=== PATIENT | male | born 1980 | race Caucasian/White ===

== ENCOUNTER 2018-08-02 13:16 | Outpatient (CLI) | payer SELFPAY ==
[2018-08-02 14:05] LABS: D-Dimer 323 ng/mlFEU (<500)
== END 2018-08-02 13:36 ==
PROVIDERS: PCP Specialist/Technologist Athletic Trainer; Visit Provider Specialist/Technologist Athletic Trainer
DX: R23.0 Cyanosis (principal)
CPT/HCPCS: 36415; 85379

== ENCOUNTER 2018-08-23 00:33 | Outpatient (CLI) | payer SELFPAY ==
--- NOTE | 2018-08-23 08:09 | DI.US_ITS ---
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 CLOT OR DVT LEFT UPPER EXTREMITY ULTRASOUND: The jugular, subclavian, axillary, basilic, brachial and cephalic veins all show compression, augmentation and color flow. No evidence of a deep venous thrombus is seen. No dilated veins are seen in the forearm. The veins in the ulnar and radial side of the forearm show normal compression and color flow. There is a 0.7 by 0.7 by 0.6, round, echogenic, avascular focus in the soft tissues superior to the elbow, likely reflecting a benign lesion such as a lipoma. IMPRESSION: No evidence of a left upper extremity deep venous thrombus.
== END 2018-08-23 00:53 ==
PROVIDERS: PCP Specialist/Technologist Athletic Trainer; Visit Provider Specialist/Technologist Athletic Trainer
DX: R23.0 Cyanosis (principal); R53.83 Other fatigue
CPT/HCPCS: 93971

== ENCOUNTER 2019-03-06 11:33 | Emergency (ER) | payer MEDICAID, SELFPAY ==
[2019-03-06] VITALS (42 sets, daily range): BP systolic 116–142; BP diastolic 64–95; PULSE 45–127; RESP 13–26; TEMP 37.1; O2SAT 95–100
--- NOTE | 2019-03-06 11:59 | ED.GENADUL_ITS ---
Discharge Plan Disposition Patient Disposition: [facility] Discharge Details Chief Complaint: Palpitatns Clinical Impression: Heart palpitations, Bigeminy Primary Care Provider: Zain Robbins ED Provider: Shubham Lopez Home Meds and New Rx's Prescriptions: No Action Xarelto 20 mg Tablet 20 mg PO HS RF: 0 clopidogrel [Plavix] 75 mg Tablet 75 mg PO DAILY RF: 0 Discharge Data Discharge Date/Time-TO BE ENTERED AT DEPARTURE: 03/06/19 15:37 Medical Decision Making 12:00 --39-year-old male presents approximately 2 weeks status post PFO repair with palpitations. Patient symptomatic today with lightheadedness and nausea. Symptoms now resolved. Patient first arrived he was noted to have significant amount of ectopy heart rate in the 120s to 130s. ECG was reviewed and interpreted by me: Sinus tachycardia 116 bpm with frequent PVCs and ventricular bigeminy pattern. 15:05 -- Spoke with BETZY Chowdary at [facility] cardiology who recommends transfer and treating with kdur 40meq PO. Awaiting ED physician accepting. 15:15 -- Spoke with Dr. Alexander, [facility] emergency physician who will accept the patient in transfer. Lab Data Lab results reviewed: Yes I reviewed the patient's lab results. HPI General Mode of arrival: ambulatory . Date/Time Provider Initiated Documentation: 03/06/19 11:59 . Limitations to Documentation: no limitations . Information obtained by: patient and family . HPI Narrative: 39-year-old male with history of recent PFO closure and left arm artery repair February 12, 2019, here with chief complaint of palpitations. Patient notes he has been having intermittent palpitations for the past 2 weeks. He typically has a few episodes a day that occur spontaneously, worse with certain positions including lying down and also seem to happen when he is taking deep breaths. Today symptoms more constant and severe with associated lightheadedness and dizziness. No associated chest pain. No shortness of breath. Related Data Home Medications Medication Instructions Recorded Confirmed clopidogrel [Plavix] 75 mg PO DAILY 03/06/19 03/06/19 rivaroxaban [Xarelto] 20 mg PO HS 03/06/19 03/06/19 Allergies Allergy/AdvReac Type Severity Reaction Status Date / Time coconut Allergy Severe anaphylaxis Unverified 03/06/19 11:49 General Stated Complaint: Palpitatns DILMA: 2 Review of Systems Review of Systems ROS Unobtainable: All systems reviewed & are unremarkable except as noted in HPI and below Cardiovascular Cardiovascular: Reports as per HPI Respiratory Respiratory: Reports as per HPI [facility] Surgical History S/P patent foramen ovale closure (Acute) Social History Smoking/Tobacco Use Status: Current every day Drug use: Never Do you feel safe at home: Yes Do you feel safe in your relationship?: Yes Exam Const General: cooperative and no acute distress HENMT Head: normocephalic Mouth: moist mucous membranes Eyes Conjunctivae: normal conjunctivae Sclera: normal sclerae Neck Neck: trachea midline and supple Resp Auscultation: clear to auscultation bilaterally, no rales, no rhonchi and no wheezes Cardio Jugular venous pressure: no JVD Rate: regular rate and not tachycardic Rhythm: regular rhythm GI Palpation: soft, not firm, no guarding, no masses, not rigid and nontender Skin General skin exam: no rashes or lesions noted Neuro General: alert, awake, oriented x3 and tone normal Extrem General: no edema Psych Appearance: grossly normal Mental Status: mental status grossly normal Speech and Movement: speech and movement normal Course Vital Signs Vital signs: Vital Signs Temperature 37.1 C 03/06/19 11:42 Pulse 60 03/06/19 11:42 Respiratory Rate 18 03/06/19 11:42 Blood Pressure 142/91 H 03/06/19 11:42 Pulse Oximetry 100 03/06/19 11:42 Temperature 37.1 C 03/06/19 11:42 Temperature Source Skin 03/06/19 11:42 Pulse 60 03/06/19 11:42 Respiratory Rate 18 03/06/19 11:42 Respiratory Effort 03/06/19 11:52 Blood Pressure 142/91 H 03/06/19 11:42 Blood Pressure Position Supine 03/06/19 11:42 Pulse Oximetry 100 03/06/19 11:42 Oxygen Delivery Method Room Air 03/06/19 11:42 Oxygen Flow Rate 0 03/06/19 11:42 Pain Level 8 03/06/19 11:42
[2019-03-06 12:38] LABS: Abs Immature Grans 0.02 k/cumm (0.0-0.09); Absolute Basophil Count 0.03 k/cumm (0.0-0.2); Absolute Eosinophil Count 0.39 k/cumm (0.0-0.7); Absolute Lymphocyte Count 2.07 k/cumm (1.2-3.4); Absolute Monocyte Count 0.56 k/cumm (0.11-0.7); Absolute Neutrophil Count 5.47 k/cumm (1.2-6.7); Basophils % 0.4; Eosinophils % 4.6; HCT 44.5 % (40.0-50.0); HGB 15.6 g/dL (13.5-17.5); Immature Grans % 0.2; Lymphocytes % 24.2; Mean Corp. HGB Concentration 35.1 g/dL (32.0-36.0); Mean Corpuscular Hemoglobin 29.1 pg (27.0-33.0); Mean Corpuscular Volume 82.9 fL (80-95); Mean Platelet Volume 9.7 fL (8.0-11.0); Monocytes % 6.6; Platelet Count 338 x1000/uL (130-400); RBC 5.37 m/cumm (4.50-6.00); RBC Distribution Width 12.1 % (11.8-14.1); White Blood Cell Count 8.54 k/cumm (4.4-10.8)
[2019-03-06 12:58] LABS: ALT 33 U/L (16-63); AST 16 U/L (15-37); Albumin 4.4 g/dL (3.4-5.0); Alkaline Phosphatase 95 U/L (46-116); Anion Gap 11.5 mmol/L (3-11); BUN 12 mg/dL (7-18); Bilirubin, Total 0.4 mg/dL (0.2-1.0); CO2 26.5 mmol/L (21.0-32.0); CREATININE 1.51 mg/dL (0.70-1.30); Calcium 9.6 mg/dL (8.5-10.1); Chloride 102 mmol/L (98-107); Estimated GFR 51.98 (mL/min/1.73m2); Glucose 121 mg/dL (70-100); Potassium 3.5 mmol/L (3.5-5.1); Sodium 140 mmol/L (136-145); TSH (W/Ref FT4) 2.99 uIU/mL (0.36-3.74); Total Protein 8.2 g/dL (6.4-8.2)
[2019-03-06 12:59] LABS: Troponin I < 0.05 ng/mL (0.00-0.06)
[2019-03-06] MEDS: Potassium Chloride 20 MEQ TABCR 40 MEQ PO (15:31)
== END 2019-03-06 15:37 | disposition short-term general hospital (02) ==
PROVIDERS: Emergency Provider Student in an Organized Health Care Education/Training Program; PCP Specialist/Technologist Athletic Trainer
DX: R00.2 Palpitations (principal); I49.3 Ventricular premature depolarization; R42 Dizziness and giddiness; R11.0 Nausea
CPT/HCPCS: 36415; 80053; 93005; 99285; 83735; 84443; 84484; 85025; 93010

== ENCOUNTER 2021-07-30 16:49 | Outpatient (REF) | payer MEDICAID, SELFPAY ==
[2021-07-30 20:21] LABS: Anion Gap 8.9 mmol/L (3-11); BUN 17 mg/dL (7-18); CO2 26.1 mmol/L (21.0-32.0); CREATININE 1.1 mg/dL (0.70-1.30); Calcium 9.4 mg/dL (8.5-10.1); Calculated LDL 144 mg/dL (<100); Chloride 104 mmol/L (98-107); Cholesterol 253 mg/dL (<200); Glucose 98 mg/dL (74-106); HDL Cholesterol 45 mg/dL (40-60); Potassium 4.5 mmol/L (3.5-5.1); Sodium 139 mmol/L (136-145); Triglyceride 320 mg/dL (<150)
== END 2021-07-30 16:50 | disposition home or self-care (01) ==
LOC: NCHCN 16:49
PROVIDERS: PCP Specialist/Technologist Athletic Trainer; Visit Provider Nurse Practitioner Family
DX: R03.0 Elevated blood-pressure reading, without diagnosis of hypertension (principal); E78.79 Other disorders of bile acid and cholesterol metabolism
CPT/HCPCS: 80048; 80061

== ENCOUNTER 2022-09-28 18:04 | Emergency (ER) | payer MEDICAID, SELFPAY ==
[2022-09-28 18:07] VITALS: BP 135/87; PULSE 88; RESP 16; O2SAT 100
[2022-09-28] MEDS: Oxymetazolone 0.05% SPRAY 15 ML BTL NS (18:30)
[2022-09-28] MEDS: Silver Nitrate Stick 1 EACH TP (19:20)
--- NOTE | 2022-09-28 19:40 | W.ED.GENAD ---
Discharge Plan Disposition Patient Disposition: Home Condition: Improving Discharge Details Clinical Impression: Acute anterior epistaxis Primary Care Provider: Zain Robbins ED Provider: Morris Fuentes Home Meds and New Rx's Prescriptions: Continued metoprolol succinate 50 mg tablet extended release 24 hr 50 mg PO DAILY Patient Comments: Take 1 tablet by mouth once a day Discontinued Xarelto 20 mg Tablet 20 mg PO HS Patient Comments: no longer taking clopidogrel [Plavix] 75 mg Tablet 75 mg PO DAILY Patient Comments: no longer taking Discharge Instructions Instructions: Nosebleed (ED) Additional Instructions: If nose starts to bleed again you may use the provided nasal spray and do 2 sprays prior to putting a clamp on. Please please leave the clamp on for at least 20 minutes before removing. If trying this twice does not resolve the nosebleed please return immediately to the emergency department for reassessment. Also if you have significant or severe hemorrhaging also return immediately to the emergency department. Otherwise feel free to follow-up with your primary care provider as needed for reassessment. Referrals: Zain Robbins [Primary Care Provider] - (As needed for reassessment) Medical Decision Making Patient presenting to the emergency department for chief complaint of bloody nose. He states that he was simply grilling when spontaneously the right side of his nose started to significantly bleed. He reports putting pressure on the area but due to continued bleeding is presenting to the ER. Patient denies any injury or trauma, history of traumatic injury to the nose, he is not on any blood thinners denies any chest pain headache or other symptoms. Physical exam shows active bleeding in the right nare. Nasal clamp was placed after 2 sprays of Afrin was instilled into the right nare. Due to delay in obtaining silver nitrate clamp was on for approximately 40 minutes or greater. After clamp was removed all bleeding had stopped. Patient was able to easily expel a clot from the right nare and no further bleeding was noted but there was one source that looked to be most obvious for area that cause bleeding. Discussed with patient risk versus benefit of cautery which patient agreed to. Silver nitrate was used to cauterize area of suspected anterior bleed. Patient was monitored after this was performed and had no new or worsening symptoms and had full resolution of complaints. After discussion of diagnosis and plan of care patient has no further needs, questions, or concerns and states clear understanding to return to the emergency department for any worsening symptoms. This documentation was generated using [employer] dictation system, please disregard any oddities of phrase or misspellings. HPI General Mode of arrival: ambulatory. Date/Time Provider Initiated Documentation: 09/28/22 18:10. Limitations to Documentation: no limitations. Information obtained by: patient, family and RN notes reviewed. History of Present Illness 42 year old M presents to the emergency department with the chief complaint of Bloody nose, described as severe and similar to prior episodes, and is localized to the right (nare). Patient started experiencing this minute(s) (40) and it has been constant. No relieving factors improve symptom(s), No exacerbating factors reported . Patient notes no other symptoms.. Patient did receive the following treatments prior to arrival, none Related Data Home Medications Medication Instructions Recorded Confirmed metoprolol succinate 50 mg 50 mg PO DAILY 09/28/22 09/28/22 tablet,extended release 24 hr Allergies Allergy/AdvReac Type Severity Reaction Status Date / Time coconut Allergy Severe anaphylaxis Unverified 09/28/22 18:11 General Stated Complaint: Epistaxis DILMA: 4 Review of Systems Constitutional Constitutional: Denies chills, Denies fever(s) and Denies headache(s) ENT Ears, Nose, Mouth, and Throat: Reports as per HPI, Denies headache(s), Reports epistaxis and Denies sore throat Cardiovascular Cardiovascular: Denies syncope and Denies lightheadedness Gastrointestinal Gastrointestinal: Denies vomiting Integumentary/Breasts Skin/Breast: Denies unusual bruising Neurologic Neurologic: Denies syncope and Denies headache(s) Hematologic/Lymphatic Hematologic/Lymphatic: Denies easy bleeding and Denies easy bruising PFSH All Active Problems Acute anterior epistaxis (Acute) Surgical History S/P patent foramen ovale closure Social History Smoking/Tobacco Use Status: Current every day Tobacco Type: cigars Smoking risk assessment performed?: Yes Alcohol Intake: current Alcohol Intake frequency: 0-2 drinks per day Alcohol type: beer Drug use: Never Substance use type: does not use Do you feel safe at home: Yes Do you feel safe in your relationship?: Yes Exam Const General: cooperative, no acute distress and not ill appearing Orientation: alert, awake and oriented x3 [facility] Head: normal to inspection, normocephalic and atraumatic Ears: hearing grossly normal bilaterally and external ears normal General nose exam: external nose normal and epistaxis on the right active bleeding Mouth: oral mucosae normal and moist mucous membranes Resp Effort & Inspection: normal respiratory effort, able to speak in complete sentences and no respiratory distress Skin General skin exam: no rashes or lesions noted Neuro General: patient alert, patient awake, patient oriented x3 and moves all extremities Course Vital Signs Vital signs: Vital Signs Pulse 88 09/28/22 18:07 Respiratory Rate 16 09/28/22 18:07 Blood Pressure 135/87 09/28/22 18:07 Pulse Oximetry 100 09/28/22 18:07 Temperature Source Oral 09/28/22 18:07 Pulse 88 09/28/22 18:07 Respiratory Rate 16 09/28/22 18:07 Respiratory Effort Normal 09/28/22 18:10 Blood Pressure 135/87 09/28/22 18:07 Blood Pressure Position Sitting 09/28/22 18:07 Pulse Oximetry 100 09/28/22 18:07 Oxygen Delivery Method Room Air 09/28/22 18:07 Oxygen Flow Rate 0 09/28/22 18:07 Pain Level 0 09/28/22 18:07 Procedures Epistaxis Control Time Out Performed: Yes Nostril: right Nose Prepped With: oxymetazoline Direct Inspection: yes and anterior source identified Clots Removed by: blowing nose Cautery Used: silver nitrate Patient Tolerated Procedure: well and no complications PAWSS Have you Been Recently Intoxicated or Drunk Within the Last 30 days?: No Have you Ever Experienced Previous Episodes of Alcohol Withdrawal?: No Have you ever Experienced Withdrawal Seizures?: No Have you ever Experienced Delirium Tremens(DT)s?: No Have you ever undergone Alcohol Rehabilitation Treatment (i.e, inpt ot outpatient treatment programs)?: No Have you ever Experienced Blackouts?: No Have you ever Combined Alcohol with other Downers within the last 90 days?: No Have you ever Combined Alcohol with any other Substance of Abuse during the last 90 days?: No Result: 0
[2022-09-28 20:00] VITALS: BP 133/88; PULSE 74; RESP 16; O2SAT 97
== END 2022-09-28 20:02 | disposition home or self-care (01) ==
PROVIDERS: Emergency Provider Nurse Practitioner Family; PCP Specialist/Technologist Athletic Trainer
DX: R04.0 Epistaxis (principal)
CPT/HCPCS: 30901; 99282; 99283

== ENCOUNTER → 2023-11-23 03:37 | Outpatient (CLI) | payer MEDICAID, SELFPAY ==
--- NOTE | 2023-11-23 07:15 | DI.MRI_ITS ---
Exam(s) MR LOWER JOINT LT WO EXAM: MR LOWER JOINT LT WO CLINICAL HISTORY: evaluate Achilles tendon, tendinitis, M76.60 TECHNIQUE: Multiplanar multisequence MRI was performed without intravenous contrast. COMPARISON: No exams were available for comparison FINDINGS: SKIN: No evidence of ulcer nor subcutaneous tract. No evidence of foreign body. BONES/JOINTS: No evidence of fracture nor bone contusion. No joint effusion is present. Amount of f luid in the tibiotalar joint appears physiologic. The talar dome appears unremarkable. The ankle m ortise is maintained. There is no evidence of para-articular ganglion.There is no evidence of osseous tarsal coalition. LIGAMENTS: The anterior and posterior syndesmotic tibiofibular and calcaneofibular ligaments are inta ct. The anterior and posterior talofibular ligaments are intact. The deltoid ligament is intact. The calcaneal navicular spring ligament appears intact SINUS TARSI: There is no loss of the normal fat signal in this space. Interosseous ligament is intac t. There is no evidence of sinus tarsi ganglion cyst. ANTEROLATERAL GUTTER:There is no abnormal signal/abnormal tissue in this space. MUSCULOTENDINOUS STRUCTURES: Achilles tendon: There is no abnormal intrasubstance signal within the Achilles tendon no abnormal th ickening nor thinning of the Achilles tendon. However, there is prominent signal abnormality in the pre Achilles Kagar far pad. There is also increased fluid in the retrocalcaneal/pre Achilles bursa. There is no abnormal intraosseous signal in the posterior calcaneus at the insertional aspect of the Achilles tendon and there is no obvious enthesophyte at this level. Plantar fascia: Unremarkable. No evidence of tear, abnormal thickening, nor abnormal nodularity. No evidence of inferior calcaneus spur/enthesophyte. Anterior Extensor tendons: Unremarkable. Medial Tendons: Posterior Tibialis: Unremarkable. No tear or tenosynovitis evident. Flexor Digitorum longus: Unremarkable. No tear or tenosynovitis evident. Flexor Hallicus longus: No tear or significant tenosynovitis evident. Lateral Tendons: Peroneus longus: Unremarkable. No tear nor tenosynovitis evident. Peroneus brevis:Unremarkable. No tear nor tenosynovitis evident. SOFT TISSUES: On the undersurface of the foot in the distal most field of view of this ankle study th ere a small collection of fluid signal measuring 2 cm wide by 0.6 cm AP by 0 point 5 cm deep. This i s in the immediate area of the insertion of the distal peroneus longus tendon on to the under surface of the medial cuneiform. Either localized tenosynovitis or a para-articular ganglia on at this leve l. There does not appear to be an actual tear of the peroneus longus tendon. OTHER FINDINGS: None. IMPRESSION: 1. The most significant findings are in the posterior aspect of the ankle region where there is signi ficant signal abnormality in the pre Achilles Kagar fat triangle, but without significant signal abno rmality within the Achilles tendon itself. This is in keeping with diagnosis of Kagar fat pad syndro me/inflammation. 2. There is also adjacent increased fluid within the retrocalcaneal bursa which is interposed between the anterior aspect of the distal Achilles tendon and the posterior aspect of the calcaneus. Consis tent with retrocalcaneal bursitis. These findings often coexist. There is no abnormal intraosseous signal in the calcaneus nor other bones of the ankle region and there is no evidence of stress fractu re. 3. There is incidentally noted us fluid collection on the undersurface of the plantar foot medial asp ect in the region of the Peroneus longus tendon insertion on the inferior aspect of the medial cuneif orm bone. I suspect this is most probably localized tenosynovitis at its insertional aspect or a sma ll ganglia on cyst coming from the overlying articulation at this level. There does not appear to be a tear of the actual Peroni S longus tendon at this level nor more proximally in this tendon. DATA REPOSITORY:
== END ==
PROVIDERS: PCP Specialist/Technologist Athletic Trainer; Visit Provider Nurse Practitioner Family
DX: M76.62 Achilles tendinitis, left leg (principal)
CPT/HCPCS: 73721

== ENCOUNTER 2023-12-01 15:22 | Outpatient (REF) | payer MEDICAID, SELFPAY ==
[2023-12-01 19:11] LABS: Hemoglobin A1C 5.8 % (<5.7)
[2023-12-01 19:32] LABS: Cholesterol 256 mg/dL (<200); HDL Cholesterol 40 mg/dL (40-60); Triglyceride 690 mg/dL (<150); Vitamin D 25 Total 19.9 ng/mL (30-100)
[2023-12-01 19:43] LABS: LDL CHOLESTEROL 134 mg/dL (<100)
== END 2023-12-01 15:23 | disposition home or self-care (01) ==
LOC: NCHCN 15:22
PROVIDERS: PCP Specialist/Technologist Athletic Trainer; Visit Provider Nurse Practitioner Family
DX: Z13.1 Encounter for screening for diabetes mellitus (principal); E55.9 Vitamin D deficiency, unspecified; I48.91 Unspecified atrial fibrillation
CPT/HCPCS: 80061; 82306; 83721; 83036

== ENCOUNTER 2024-05-02 12:57 | Outpatient (REF) | payer MEDICAID, SELFPAY ==
[2024-05-02 16:06] LABS: ALT 63 U/L (16-63); AST 39 U/L (15-37); Albumin 4.1 g/dL (3.4-5.0); Alkaline Phosphatase 65 U/L (46-116); Anion Gap 8.2 mmol/L (3-11); BUN 11 mg/dL (7-18); Bilirubin, Total 0.77 mg/dL (0.2-1.0); CO2 27.8 mmol/L (21.0-32.0); CREATININE 1.2 mg/dL (0.70-1.30); Calcium 9.5 mg/dL (8.5-10.1); Calculated LDL 149 mg/dL (<100); Chloride 105 mmol/L (98-107); Cholesterol 266 mg/dL (<200); Estimated GFR 76.95 (mL/min/1.73m2); Glucose 108 mg/dL (74-106); HDL Cholesterol 48 mg/dL (40-60); Potassium 4.4 mmol/L (3.5-5.1); Sodium 141 mmol/L (136-145); Total Protein 7.6 g/dL (6.4-8.2); Triglyceride 345 mg/dL (<150); Vitamin D 25 Total 19.1 ng/mL (30-100)
[2024-05-02 16:39] LABS: Hemoglobin A1C 5.7 % (<5.7)
[2024-05-02 16:49] LABS: Uric Acid 10.4 mg/dL (3.5-7.2)
== END 2024-05-02 12:58 | disposition home or self-care (01) ==
LOC: NCHCN 12:57
PROVIDERS: PCP Nurse Practitioner Family; Visit Provider Nurse Practitioner Family
DX: E78.2 Mixed hyperlipidemia (principal); R73.03 Prediabetes; E55.9 Vitamin D deficiency, unspecified; Z87.39 Personal history of other diseases of the musculoskeletal system and connective tissue
CPT/HCPCS: 80053; 80061; 82306; 83036; 84550

== ENCOUNTER 2025-05-09 16:16 | Outpatient (REF) | payer SELFPAY ==
[2025-05-09 19:42] LABS: ALT 36 U/L (10-49); AST 27 U/L (<34); Albumin 4.9 g/dL (3.4-5.0); Alkaline Phosphatase 72 U/L (46-116); Anion Gap 4.6 mmol/L (3-11); BUN 17 mg/dL (9-23); Bilirubin, Total 0.40 mg/dL (0.2-1.2); CO2 27.4 mmol/L (20.0-31.0); Calcium 10.3 mg/dL (8.3-10.6); Chloride 107 mmol/L (98-107); Cholesterol 258 mg/dL (<200); Glucose 93 mg/dL (74-106); HDL Cholesterol 50 mg/dL (>40); Potassium 4.2 mmol/L (3.5-5.1); Sodium 139 mmol/L (136-145); Total Protein 7.5 g/dL (5.7-8.2)
[2025-05-09 19:45] LABS: Vitamin D 25 Total 17 ng/mL (30-100)
[2025-05-09 19:49] LABS: Hemoglobin A1C 5.6 % (<5.7)
[2025-05-09 20:45] LABS: Uric Acid 9.4 mg/dL (3.7-9.2)
== END 2025-05-09 16:17 | disposition home or self-care (01) ==
LOC: NCHCN 16:16
PROVIDERS: PCP Nurse Practitioner Family; Visit Provider Nurse Practitioner Family
DX: M10.9 Gout, unspecified (principal); R73.03 Prediabetes; E78.2 Mixed hyperlipidemia; E55.9 Vitamin D deficiency, unspecified
CPT/HCPCS: 80053; 80061; 82306; 83721; 83036; 84550